=== PATIENT | male | born 1965 | race Caucasian/White ===

== ENCOUNTER → 2016-09-08 | Outpatient (CLI) | payer BC ==
[~2016-09-08] MED LIST: FLUT0.15 NAE; NAPR220T40 PO; PRLSR20 PO; SERT-234 PO
[2016-09-08 09:45] LABS: BLOOD UREA NITROGEN 13 mg/dl (7-18); CALCIUM 8.7 mg/dl (8.5-10.1); CARBON DIOXIDE 23 mmol/L (21-32); CHLORIDE 107 mmol/L (98-107); GLUCOSE 133 mg/dl (70-99); POTASSIUM 3.8 mmol/L (3.5-5.1); SODIUM 138 mmol/L (136-145)
[2016-09-10 11:43] LABS: QUANTIF TB AG-NIL 0.01 IU/ML; QUANTIFERON NIL 0.04 IU/ML
== END | disposition home or self-care (01) ==
LOC: C.LAB1850 08:14
PROVIDERS: ATTEND Internal Medicine Pulmonary Disease
DX: R91.1 Solitary pulmonary nodule (principal)

== ENCOUNTER → 2016-10-08 | Outpatient (CLI) | payer BC ==
[~2016-10-08] MED LIST changes: +OPTIRAY 320 IV PRN
--- NOTE | 2016-10-08 08:23 | DIAGNOSTIC IMAGING REPORT ---
CT OF THE CHEST WITH IV CONTRAST CLINICAL HISTORY: R91.1 Pulmonary nodule COMPARISON STUDY: Chest x-ray dated 06/25/2015 TECHNIQUE: Following the IV administration of 92 mL of Optiray-320, CT of the thorax was performed from the thoracic inlet to the lung bases. Images are reviewed in the axial, sagittal, and coronal planes. IV contrast was administered without complication. CT DOSE: 279.90 mGy.cm FINDINGS: Thyroid: Imaged portions of the thyroid gland are normal in appearance. Thoracic aorta: The thoracic aorta is normal in course and caliber, noting standard 3-vessel arch anatomy. No aneurysm or dissection is seen. Pulmonary vasculature: The pulmonary trunk is normal in caliber. There are no central filling defects identified to suggest pulmonary embolus. Note that this examination was not protocoled for the evaluation of pulmonary emboli. HEART: The heart is normal in size and configuration, without pericardial effusion. Lungs and pleural spaces: There are no pleural effusions. There are minor dependent atelectatic changes. There is no focal pulmonary consolidation. No suspicious pulmonary nodules are visualized. Mediastinum: There is no mediastinal lymphadenopathy. Trixie: Clear. Axilla: Clear. Upper abdomen: Partially visualized upper abdominal viscera is within normal limits. Skeletal structures: There are no lytic or blastic osseous lesions. IMPRESSION: 1. No acute intrathoracic findings 2. No suspicious pulmonary masses 3. No evidence of pathologic adenopathy. Electronically signed by: Marcello Calhoun M.D. 10/08/2016 8:22 AM Dictated Date/Time: 10/08/2016 8:12 AM
== END | disposition home or self-care (01) ==
LOC: C.CTS 07:35
PROVIDERS: ATTEND Physician Assistant
DX: R91.1 Solitary pulmonary nodule (principal)